=== PATIENT | female | born 1945 | race Caucasian/White ===

== ENCOUNTER 2016-08-07 08:29 | Outpatient (CLI) | payer MEDICARE, OTHER | END 2016-08-07 08:30 | disposition home or self-care (01) | DX: E78.2 Mixed hyperlipidemia (principal); R73.09 Other abnormal glucose ==

== ENCOUNTER 2016-08-15 13:16 | Outpatient (CLI) | payer MEDICARE, OTHER ==
--- NOTE | 2016-08-16 16:40 | Mammography Report ---
DIGITAL SCREENING MAMMOGRAM: 08/15/2016 CLINICAL INDICATION: A 70-year-old with history of benign biopsies, for screening. COMPARISON: 08/2015, 08/2014, 06/2013, 06/2012, 06/2011, 05/2010. TECHNIQUE: Routine CC and MLO projections were obtained of the breasts. FINDINGS: The breasts demonstrate heterogeneously dense fibroglandular parenchyma bilaterally. Stere otactic biopsy markers in the left breast are stable. Punctate, typically benign calcifications are p resent. No suspicious masses, clustered microcalcifications, or regions of architectural distortion a re identified. IMPRESSION: BENIGN FINDINGS. RECOMMENDATION: ROUTINE ANNUAL SCREENING UNLESS OTHERWISE CLINICALLY INDICATED. BIRADS CATEGORY 2-BENIGN FINDINGS. STANDARD QUALIFYING STATEMENTS 1. This examination was reviewed with the aid of Computer-Aided Detection (CAD). 2. A negative or benign imaging report should not delay biopsy if clinically suspicious findings are present. Consider surgical consultation if warranted. More than 5% of cancers are not identified by i maging. 3. Dense breasts may obscure an underlying neoplasm. JOB #: [id number] EXT JOB #:[id number]
== END 2016-08-15 13:17 | disposition home or self-care (01) ==
LOC: DI.S 13:16
PROVIDERS: ATTEND Nurse Practitioner Primary Care
DX: Z12.31 Encounter for screening mammogram for malignant neoplasm of breast (principal)
CPT/HCPCS: 77067

== ENCOUNTER 2016-08-25 10:44 | Emergency (ER) | payer MEDICARE, OTHER ==
[2016-08-25] MEDS ORDERED: DEXAMETHASONE 10 MG/ML VIAL PO STA (12:09)
[2016-08-25] MEDS ORDERED: HYDROcod/ACETAM 5/325 MG TABLET PO STA (12:09)
[2016-08-25] MEDS ORDERED: HYDROcod/ACETAM 5/325 MG TABLET ONE (12:20)
[2016-08-25] MEDS ORDERED: DEXAMETHASONE 10 MG/ML VIAL ONE (12:20)
[2016-08-25] MEDS ORDERED: CHERRY SYRUP 10 ML UDC PO ONE (12:20)
== END 2016-08-25 17:07 | disposition home or self-care (01) ==
DX: S32.020A Wedge compression fracture of second lumbar vertebra, initial encounter for closed fracture (principal); W19.XXXA Unspecified fall, initial encounter; J44.9 Chronic obstructive pulmonary disease, unspecified; J45.909 Unspecified asthma, uncomplicated; M19.90 Unspecified osteoarthritis, unspecified site
CPT/HCPCS: 72100; 72131; 99283; 99284; A9270

== ENCOUNTER 2016-10-16 08:52 | Outpatient (CLI) | payer MEDICARE, OTHER | END 2016-10-16 08:53 | disposition home or self-care (01) | DX: M85.89 Other specified disorders of bone density and structure, multiple sites (principal) ==

== ENCOUNTER 2017-02-28 06:55 | Day surgery (SDC) | payer MEDICARE, OTHER ==
[~2017-02-28 06:55] MED LIST: CYCLOPENTOLATE 1% OPHTH DROPS 2 ML ONE; KETOROLAC 0.45% OPHTH DROPS ONE; PHENYLEPHRINE 2.5% OPHTH 2 ML DROPS ONE; PROPARACAINE 0.5% OPHTH DROPS 15 ML ONE
[2017-02-28] MEDS ORDERED: LACTATED RINGERS 500 ML IV ONE (07:05)
[2017-02-28] MEDS ORDERED: BRIMONIDINE 0.2% OPHTH DROPS 5 ML ONE (07:08)
[2017-02-28] MEDS ORDERED: TIMOLOL 0.5% OPHTH DROPS ONE (07:08)
[2017-02-28] MEDS ORDERED: PHENYLEPHRINE 2.5% OPHTH 2 ML DROPS OPTH ONE (07:12)
[2017-02-28] MEDS ORDERED: KETOROLAC 0.45% OPHTH DROPS OPTH ONE (07:12)
[2017-02-28] MEDS ORDERED: PROPARACAINE 0.5% OPHTH DROPS 15 ML OPTH ONE ×2 (07:12→07:57)
[2017-02-28] MEDS ORDERED: CYCLOPENTOLATE 1% OPHTH DROPS 2 ML OPTH ONE (07:12)
[2017-02-28] MEDS ORDERED: BRIMONIDINE 0.2% OPHTH DROPS 5 ML OPTH ONE (07:56)
[2017-02-28] MEDS ORDERED: BSS/LIDOCAINE/EPINEPHRINE 1 ML SYRINGE IO ONE ×2 (07:57)
[2017-02-28] MEDS ORDERED: TRIAMCIN/MOXIFLOX/VANCO 1 ML VIAL IO ONE ×2 (07:57)
[2017-02-28] MEDS ORDERED: TIMOLOL 0.5% OPHTH DROPS OPTH ONE (07:57)
[2017-02-28] MEDS ORDERED: CHONDR SULF/HYALURONATE SYRINGE IO ONE (07:57)
[2017-02-28] MEDS ORDERED: EPINEPHrine 1 MG/ML AMP IVP ONE (07:57)
[2017-02-28] MEDS ORDERED: MIDAZOLAM 2 MG/2 ML VIAL IVP ONE (08:00)
[2017-02-28 08:42] VITALS: BP 130/62
--- NOTE | 2017-02-28 08:49 | OPERATIVE REPORT ---
DATE OF SURGERY: 02/28/2017 00:00:00 PREOPERATIVE DIAGNOSIS: Visually significant cataract, right eye. This is her first cataract surgery. POSTOPERATIVE DIAGNOSIS: Visually significant cataract, right eye. This is her first cataract surgery . NAME OF PROCEDURE: Phacoemulsification posterior chamber intraocular lens implant, right eye. SURGEON: Erlin Jordan MD. ANESTHESIA: Monitored anesthesia care. COMPLICATIONS: None. OPERATIVE INDICATIONS: This is a 71-year-old woman with progressive vision loss in the right eye due to 1-2+ nuclear sclerotic and vacuolar cataract. Best corrected visual acuity was 20/30 with glare to 20/100 in the right eye. Indications for surgery were overall decrease in vision, difficulty reading small print, difficulty seeing words, close captions, or game scores on TV, difficulty seeing street signs, difficulty driving at night because of headlights from other vehicles, difficulty with glare or bright lights in any situation, and difficulty tracking a golf ball. She was consented at length c oncerning the risks and benefits of cataract surgery, after which she expressed a desire to proceed w ith surgery. OPERATIVE PROCEDURE: The patient was taken into OR #2 and placed under monitored anesthesia care. A s urgical time-out was conducted confirming the correct patient, correct procedure and correct surgical site. She was placed under the LenSx laser and her eye docked to the laser interface. The laser perf ormed capsulotomy, lens softening, phaco wounds, and arcuate keratotomy incisions. She was then moved to the operating microscope, given topical anesthesia, and prepped and draped in the usual sterile f ashion. The eye was entered at the 12 and 9 o'clock positions. Intracameral Shugarcaine was injected into the anterior chamber, followed by Viscoat. Capsulorrhexis flap created by the LenSx laser was re moved from the anterior chamber. The nucleus was hydrodissected and phacoemulsified. The cortex was e vacuated using automated infusion aspiration. Provisc was injected into the capsular bag and a 17.5 d iopter intraocular lens inserted into the bag. Approximately 0.7 mL of a mixture of triamcinolone, mo xifloxacin, and vancomycin was injected subconjunctivally in the superior quadrant for infection and inflammation prophylaxis. I/A was used to evacuate the viscoelastic materials. The eye was inflated t o a physiologic pressure using balanced salt solution and found to be watertight. The patient was nicolás en from the operating room in good condition and given postoperative instructions. JOB #: [id number] EXT JOB #:[id number]
== END 2017-02-28 06:56 | disposition home or self-care (01) ==
LOC: SDS 06:55
PROVIDERS: ATTEND Ophthalmology
PROC: 08RJ3JZ Replacement of Right Lens with Synthetic Substitute, Percutaneous Approach (ICD-10-PCS; principal; 2017-02-28 08:00)
DX: H25.11 Age-related nuclear cataract, right eye (principal); J44.9 Chronic obstructive pulmonary disease, unspecified; Z87.891 Personal history of nicotine dependence; M19.90 Unspecified osteoarthritis, unspecified site
CPT/HCPCS: 66984; A9270; J3490; V2632

== ENCOUNTER 2017-03-15 07:59 | Outpatient (CLI) | payer MEDICARE, OTHER ==
--- NOTE | 2017-03-15 10:25 | MRI Report ---
EXAM: MRI LUMBAR SPINE WITHOUT CONTRAST EXAM DATE: 03/15/2017 09:47 AM. CLINICAL HISTORY: BACK PAIN, LUMBAR, WITH RADICULOPATHY. COMPARISON: MRI LUMBAR SPINE WITHOUT CONTRAST 08/20/2015. CT LUMBAR SPINE 08/25/2016. TECHNIQUE: Multiplanar, multisequence T1-weighted and fluid-sensitive sequences of the lumbar spine f rom T12 to S1 without contrast. Other: None. FINDINGS: Spinal Cord: The conus terminates at L1. No signal abnormality in the visualized spinal cord. Normal cauda equina. No significant change. Alignment: Minimal dextroscoliosis centering at about L2. L4-L5 mild grade 1 degenerative anterolisth esis, unchanged. Bone Marrow: Five [id number] lumbar vertebral bodies are assumed. Acute to subacute superior end plate compression fracture of L2, not present on 08/20/2015, worse than on 08/25/2016, with moderate ed audi and central diskogenic herniation, 30-40% loss of vertebral height anteriorly, without significan t posterior vertebral height loss, with minimal retropulsion. Disk Levels/Facets: Disk dehydration at all levels without significant loss of disk height. T12-L1: Unremarkable. No significant change. L1-L2: Mild broad-based disk bulge/osteophyte complex and mild superior retropulsion of L2 causing mo derate central stenosis but without central neural impingement. No significant foraminal narrowing. F acets are unremarkable. L2-L3: Mild broad-based disk bulge/osteophyte complex extending to the foramina causing mild narrowin g of the central canal and foramina without impingement. Mild facet arthropathy without juxtaarticula r edema or significant effusion. No significant change. L3-L4: Mild broad-based disk bulge/osteophyte complex extending to the foramina causing mild narrowin g of the central canal and foramina without impingement. Mild facet arthropathy without juxtaarticula r edema or significant effusion. No significant change. L4-L5: Mild grade 1 degenerative anterolisthesis. Mild broad-based disk bulge/osteophyte complex exte nding to the foramina causing mild narrowing of the central canal and foramina without impingement. M oderate facet arthropathy without juxtaarticular edema or significant effusion. No significant change . L5-S1: Unremarkable. No significant change. Musculature: Mild to moderate fatty atrophy of posterior paraspinal muscles. No edema. No significant change. Other: The visualized pelvic cavity is unremarkable. IMPRESSION: 1. Acute to subacute superior endplate compression fracture of L2, not present on 08/20/2015, worse th an on 08/25/2016, with moderate edema and central diskogenic herniation, 30-40% loss of vertebral heig ht anteriorly, without significant posterior vertebral height loss, with minimal retropulsion. There is probably acute on chronic compression fracture since 08/25/2016 in the same area. 2. Multilevel disk degenerative changes with mild broad-based disk bulge/osteophyte complex extending to the foramina causing mild narrowing of the central canal and foramina without impingement. No sig nificant change. 3. Minimal dextroscoliosis centering at about L2. L4-L5 mild grade 1 degenerative anterolisthesis, un changed. 4. Multilevel hvzf-vw-yeeylflw facet arthropathy without juxtaarticular edema or significant effusion . No significant change. 5. Mild to moderate fatty atrophy of posterior paraspinal muscles. No edema. Comment: The following findings are so common in adults without low back pain that while we report th eir presence, they must be interpreted with caution and in the context of the clinical situation. (Re subhash Hawkinsk et al, Spine 2001) Prevalence of findings in patients without low back pain: Disk degeneration (any evidence): 92% Disk desiccation/T2 signal loss: 83% Disk height loss: 56% Disk bulge: 64% Disk protrusion: 32% Annular tear/high intensity zone: 38% [facility] Referring Provider Line: [phone] SITE ID: [id number]
--- NOTE | 2017-03-15 10:25 | MRI Report ---
EXAM: MRI SACRUM/SI JOINTS WITHOUT CONTRAST EXAM DATE: 03/15/2017 09:47 AM. CLINICAL HISTORY: BACK PAIN, LUMBAR, WITH RADICULOPATHY. COMPARISON: None. TECHNIQUE: Multiplanar, multisequence T1-weighted and fluid-sensitive sequences of the sacrum/sacroil iac joints without contrast. Other: None. FINDINGS: Bones: There is normal alignment of the sacrum and coccyx. No fractures or subluxations. No marrow ed audi or bone lesions. Sacroiliac Joints: No effusion or sacroiliitis. Symphysis Pubis: Unremarkable. Musculature: No edema or fatty atrophy. Neurologic Structures: The sacral neural foramina are patent, and the sacral nerve roots have normal signal intensity. The visualized sciatic nerves are unremarkable. Pelvic Cavity: The visualized bowel, bladder, and reproductive organs are unremarkable. No lymphadeno rebecca. No free fluid in the pelvis. Other: No bursitis. The subcutaneous tissues are unremarkable. IMPRESSION: 1. No MRI abnormalities in the sacrum/SI joints. 2. Please see separate report of MRI lumbar spine for other abnormality. [facility] MUSCULOSKELETAL RADIOLOGY SECTION Referring Provider Line: [phone] SITE ID: [id number]
== END 2017-03-15 08:00 | disposition home or self-care (01) ==
LOC: DI 07:59
PROVIDERS: ATTEND Nurse Practitioner Primary Care
DX: M48.56XA Collapsed vertebra, not elsewhere classified, lumbar region, initial encounter for fracture (principal); M51.16 Intervertebral disc disorders with radiculopathy, lumbar region; M41.9 Scoliosis, unspecified; M43.16 Spondylolisthesis, lumbar region; M47.26 Other spondylosis with radiculopathy, lumbar region; G12.9 Spinal muscular atrophy, unspecified
CPT/HCPCS: 72148; 72195

== ENCOUNTER 2017-07-17 15:59 | Outpatient (CLI) | payer MEDICARE, OTHER ==
--- NOTE | 2017-07-18 18:18 | XRAY Report ---
DATE OF SERVICE: 07/17/2017 TWO VIEW RIGHT FOURTH FINGER: 07/17/2017 CLINICAL INDICATION: Sprain, pain. AP, lateral views of the right fourth finger demonstrate soft tissue swelling at the proximal interphalangeal joint. There is no evidence of acute fracture or dislocation. No radiopaque foreign body is seen in the soft tissues. IMPRESSION: Soft tissue swelling, but no evidence of acute fracture. TD: 07/18/2017 19:17
== END 2017-07-17 16:00 | disposition home or self-care (01) ==
LOC: DI 15:59
PROVIDERS: ATTEND Nurse Practitioner Primary Care
DX: S63.619A Unspecified sprain of unspecified finger, initial encounter (principal)
CPT/HCPCS: 73140

== ENCOUNTER 2017-08-16 11:37 | Outpatient (CLI) | payer MEDICARE, OTHER ==
--- NOTE | 2017-08-19 12:49 | Mammography Report ---
DIGITAL SCREENING MAMMOGRAM: 08/16/2017 CLINICAL INDICATION: A 71-year-old with history of benign biopsies, for screening. COMPARISON: 08/2016, 08/2015, 08/2014, 06/2013, 06/2012. TECHNIQUE: Routine CC and MLO projections were obtained of the breasts. FINDINGS: The breasts demonstrate scattered fibroglandular densities bilaterally. Stereotactic biopsy markers in the left breast are stable. No suspicious masses, clustered microcalcifications, or regions of architectural distortion are identified. IMPRESSION: BENIGN FINDINGS. RECOMMENDATION: ROUTINE ANNUAL SCREENING UNLESS OTHERWISE CLINICALLY INDICATED. BIRADS CATEGORY 2-BENIGN FINDINGS. STANDARD QUALIFYING STATEMENTS: 1. This examination was reviewed with the aid of Computer-Aided Detection (CAD). 2. A negative or benign imaging report should not delay biopsy if clinically suspicious findings are present. Consider surgical consultation if warranted. More than 5% of cancers are not identified by imaging. 3. Dense breasts may obscure an underlying neoplasm. TD: 08/19/2017 12:48
== END 2017-08-16 11:38 | disposition home or self-care (01) ==
LOC: DI.S 11:37
PROVIDERS: ATTEND Nurse Practitioner Primary Care
DX: Z12.31 Encounter for screening mammogram for malignant neoplasm of breast (principal)
CPT/HCPCS: 77067

== ENCOUNTER 2017-09-16 09:06 | Outpatient (CLI) | payer MEDICARE, OTHER ==
[2017-09-16 17:48] LABS: BASOPHILS % (AUTO) 0.9 %; EOSINOPHILS # (AUTO) 0.1 10^3/uL (0.0-0.7); EOSINOPHILS % (AUTO) 3.8 %; HGB - HEMOGLOBIN 13.8 g/dL (12.0-16.0); LYMPHOCYTES # (AUTO) 1.6 10^3/uL (1.5-3.5); LYMPHOCYTES % (AUTO) 40.8 %; MEAN CORPUSCULAR HEMOGLOBIN 29.6 pg (27.0-31.0); MEAN CORPUSCULAR VOLUME 89.6 fL (81.0-99.0); MEAN PLATELET VOLUME 8.1 fL (7.9-10.8); MONOCYTES # (AUTO) 0.5 10^3/uL (0.0-1.0); MONOCYTES % (AUTO) 12.9 %; NEUTROPHILS # (AUTO) 1.6 10^3/uL (1.5-6.6); NEUTROPHILS % (AUTO) 41.6 %; PLT - PLATELET COUNT 215 10^3/uL (130-450); RED BLOOD COUNT 4.65 10^6/uL (4.20-5.40); WHITE BLOOD COUNT 3.8 x10^3/uL (4.8-10.8)
[2017-09-16 18:09] LABS: ALBUMIN 4.4 g/dL (3.2-5.5); ALBUMIN/GLOBULIN RATIO 1.7 (1.0-2.2); ALKALINE PHOSPHATASE 24 IU/L (42-121); ALT ALANINE AMINOTRANSFERASE 24 IU/L (10-60); AST ASPARTATE AMINOTRANSFERASE 25 IU/L (10-42); BILIRUBIN,TOTAL 0.7 mg/dL (0.2-1.0); BUN - BLOOD UREA NITROGEN 15 mg/dL (6-20); CALCIUM 8.9 mg/dL (8.5-10.3); CARBON DIOXIDE - CO2 26 mmol/L (21-32); CHLORIDE 100 mmol/L (101-111); CHOL/HDL RATIO 3.1 (<4.4); CHOLESTEROL 214 mg/dL; CREATININE 0.6 mg/dL (0.4-1.0); GFR - MDRD 99 (>89); GLUCOSE 105 mg/dL (70-100); HDL CHOLESTEROL 68 mg/dL; LDL CHOLESTEROL,CALCULATED 134 mg/dL; SODIUM 133 mmol/L (135-145); VLDL CHOLESTEROL 12 mg/dL
[2017-09-16 20:19] LABS: HB2 TOTAL 15.1 g/dL; HEMOGLOBIN A1C 0.61 g/dL; HEMOGLOBIN A1C % 5.8 % (4.6-6.2)
== END 2017-09-16 09:07 | disposition home or self-care (01) ==
LOC: LAB 09:06
PROVIDERS: ATTEND Nurse Practitioner Primary Care
DX: E78.5 Hyperlipidemia, unspecified (principal); R73.01 Impaired fasting glucose; M81.0 Age-related osteoporosis without current pathological fracture; K90.0 Celiac disease; E04.1 Nontoxic single thyroid nodule; Z79.899 Other long term (current) drug therapy
CPT/HCPCS: 36415; 80053; 80061; 82306; 83036; 83721; 84443; 85025

== ENCOUNTER 2017-09-29 13:23 | Outpatient (CLI) | payer MEDICARE, OTHER ==
[2017-09-29] MEDS ORDERED: ALBUTEROL NEB 2.5 MG/3 ML INH ONE (14:00)
== END 2017-09-29 13:24 | disposition home or self-care (01) ==
LOC: RT 13:23
PROVIDERS: ATTEND Nurse Practitioner Primary Care
DX: R06.02 Shortness of breath (principal)
CPT/HCPCS: 94060

== ENCOUNTER 2017-10-21 08:33 | Outpatient (CLI) | payer MEDICARE, OTHER ==
--- NOTE | 2017-10-21 13:34 | DEXA Report ---
DEXA SCAN: 10/21/2017 CLINICAL INDICATION: Postmenopausal. TECHNIQUE: Dual energy x-ray absorptiometry (DXA) was performed on a [employer] system. Regions measured are the AP spine, femoral neck, and, if needed, forearm. COMPARISON: None. In accordance with the International Society for Clinical Densitometry (ISCD) guidelines, data from previous exams may be reanalyzed using current recommendations and techniques. This is done to allow a more accurate basis for comparison with the current study. FINDINGS Data for the lumbar spine is as follows: REGION BMD (g/cm/cm) T-SCORE Z-SCORE L3 0.936 -2.2 -0.4 L4 0.936 -2.2 -0.4 L3-L4 0.936 -2.2 -0.4 NOTE: Evaluable vertebrae are used for classification. L1 and L2 were excluded. Data for the hip is as follows: REGION BMD (g/cm/cm) T-SCORE Z-SCORE Neck 0.766 -2.0 -0.1 TOTAL 0.810 -1.6 0.1 NOTE: The femoral neck or total proximal femur, whichever is lowest, is used for classification. DEXA RESULTS SUMMARY: Spine SCAN DATE AGE BMD T-SCORE BMD CHANGE VS BASELINE BMD CHANGE VS PREVIOUS 10[age] 0[age]936 -- 0.020 2.2 10/16/2016 [age] 0[age]916 -- -- -- * Denotes significant change at the 95% confidence level. Denotes dissimilar scan types or analysis methods. DEXA RESULTS SUMMARY: Total hip SCAN DATE AGE BMD T-SCORE BMD CHANGE VS BASELINE BMD CHANGE VS PREVIOUS 10/21/[age] 0.810 -- 0.009 1.1 10/16/2016 [age] 0[age]801 -- -- -- * Denotes significant change at the 95% confidence level. Denotes dissimilar scan types or analysis methods. IMPRESSION 1. WHO CLASSIFICATION BASED ON THE INTERNATIONAL REFERENCE STANDARD IS OSTEOPENIA. FRACTURE RISK IS INCREASED. 2. THERE HAS BEEN NO STATISTICALLY SIGNIFICANT INTERVAL CHANGE FROM 10/16/2016. 3. L1 AND L2 WERE EXCLUDED, DUE TO L2 COMPRESSION FRACTURE. RECOMMENDATION: Patients with diagnosis of osteoporosis or osteopenia should have regular bone mineral density assessment. For those eligible for Medicare, routine testing is allowed once every 2 years. Testing frequency can be increased for patients who have rapidly progressing disease or for those who are receiving medical therapy to restore bone mass. COMMENT World Health Organization (WHO) definitions for osteoporosis and osteopenia: NORMAL BMD: T-score at 1.0 or higher, fracture risk is low. OSTEOPENIA BMD: T-score between 1.0 and -2.5, fracture risk is increased. OSTEOPOROSIS BMD: T-score at 2.5 or lower, fracture risk high. National Osteoporosis Foundation recommends: 1. Obtain adequate dietary calcium (at least 1200 mg per day) and vitamin D (400 -800 international units per day). 2. Participate, as appropriate, in regular weightbearing and muscle- strengthening exercise. 3. Avoid tobacco use and reduce alcohol and caffeine intake. 4. For more detailed information see the website at www.NOF.org. TD: 10/21/2017 09:41 CLAUDINE
== END 2017-10-21 08:34 | disposition home or self-care (01) ==
LOC: DI 08:33
PROVIDERS: ATTEND Nurse Practitioner Primary Care
DX: M85.89 Other specified disorders of bone density and structure, multiple sites (principal); Z79.899 Other long term (current) drug therapy
CPT/HCPCS: 77080

== ENCOUNTER 2017-11-15 07:08 | Outpatient (CLI) | payer MEDICARE, OTHER ==
[2017-11-15 12:09] LABS: ALT ALANINE AMINOTRANSFERASE 35 IU/L (10-60); AST ASPARTATE AMINOTRANSFERASE 28 IU/L (10-42); CHOL/HDL RATIO 2.8 (<4.4); CHOLESTEROL 175 mg/dL; HDL CHOLESTEROL 63 mg/dL; LDL CHOLESTEROL,CALCULATED 97 mg/dL; LDL/HDL RATIO 1.5 (<4.4); VLDL CHOLESTEROL 15 mg/dL
== END 2017-11-15 07:09 | disposition home or self-care (01) ==
LOC: LAB.F 07:08
PROVIDERS: ATTEND Nurse Practitioner Primary Care
DX: Z79.899 Other long term (current) drug therapy (principal); E78.5 Hyperlipidemia, unspecified
CPT/HCPCS: 36415; 80061; 83721; 84450; 84460

== ENCOUNTER 2017-12-04 10:52 | Outpatient (CLI) | payer MEDICARE, OTHER ==
[2017-12-04 11:24] LABS: CALCIUM 9.3 mg/dL (8.5-10.3); CREATININE 0.5 mg/dL (0.4-1.0)
== END 2017-12-04 10:53 | disposition home or self-care (01) ==
LOC: LAB 10:52
PROVIDERS: ATTEND Nurse Practitioner Primary Care
DX: M81.0 Age-related osteoporosis without current pathological fracture (principal)
CPT/HCPCS: 36415; 82310; 82565

== ENCOUNTER 2018-10-08 08:27 | Outpatient (CLI) | payer MEDICARE, OTHER ==
--- NOTE | 2018-10-08 12:24 | Mammography Report ---
Reason: Annual Screening Procedure Date: 10/08/2018 Accession Number: [id number] / [id number] Procedure: JOHNNY - Screening Mammo Dig Bilat CPT Code: FULL RESULT: EXAM: Screening Mammo Dig Bilat DATE: 10/08/2018 8:57 AM CLINICAL HISTORY: Routine screening. No reported personal or family history of breast cancer. Prior history of benign stereotactic breast biopsies on the left. TECHNIQUE: (B) - Bilateral Bilateral CC and MLO views were obtained. COMPARISON: 08/16/2017 through 08/17/2014 PARENCHYMAL PATTERN: (A) - The breasts demonstrate scattered fibroglandular densities bilaterally. FINDINGS: Bilateral breasts: There are no suspicious masses, calcifications, or areas of distortion. Stable appearance of 2 biopsy markers in the central left breast. IMPRESSION: Benign findings. BI-RADS category 2 RECOMMENDATION: (ANNUAL) - Recommend routine annual screening mammography. BI-RADS CATEGORY: (2) - Benign Findings STANDARD QUALIFYING STATEMENTS: 1. This examination was not reviewed with the aid of Computer-Aided Detection (CAD). 2. A negative or benign imaging report should not preclude biopsy if clinically suspicious findings are present. 3. Dense breasts may obscure an underlying neoplasm. 4. This examination was reviewed without the aid of 3D breast imaging (tomosynthesis).
== END 2018-10-08 08:28 | disposition home or self-care (01) ==
LOC: DI 08:27
PROVIDERS: ATTEND Family Medicine
DX: Z12.31 Encounter for screening mammogram for malignant neoplasm of breast (principal)
CPT/HCPCS: 77067

== ENCOUNTER 2018-10-28 10:15 | Outpatient (CLI) | payer MEDICARE, OTHER ==
--- NOTE | 2018-10-29 11:47 | DEXA Report ---
Reason: OSTEOPOROSIS Procedure Date: 10/28/2018 Accession Number: [id number] / [id number] Procedure: DEX - Dexa Spine and/or Hip CPT Code: FULL RESULT: EXAM: Dexa Spine and/or Hip DATE: 10/28/2018 10:45 AM CLINICAL HISTORY: OSTEOPOROSIS TECHNIQUE: Dual energy x-ray absorptiometry (DXA) was performed on a [employer] System. Regions measured are the AP Spine, femoral neck, and if needed forearm. COMPARISON: 10/21/2017. In accordance with the International Society for Clinical Densitometry (ISCD) guidelines, data from previous exams may be reanalyzed using current recommendations and techniques. This is done to allow a more accurate basis for comparison with the current study. FINDINGS: The data for the lumbar spine is as follows: BMD (g/cm/cm) T-SCORE Z-SCORE REGION L1 0.816 -2.6 -0.7 L2 excluded L3 0.954 -2.1 -0.1 L4 0.944 -2.1 -0.2 TOTAL 0.909 -2.2 -0.3 NOTE: All evaluable vertebrae are used for classification The data for the hip is as follows: BMD (g/cm/cm) T-SCORE Z-SCORE REGION Neck 0.762 -2.0 0.0 TOTAL 0.803 -1.6 0.1 NOTE: The femoral neck or total proximal femur, whichever is lowest, is used for classification. DXA RESULTS SUMMARY: Spine SCAN DATE AGE BMD CHANGE VS CHANGE VS PREVIOUS PREVIOUS % 10/28/2018 [age] 0[age]909 0.002 0.2 10/21/2017 71.9 0[age]907 0.056* 6.6* 10/16/2016 [age] 0[age]851 * Denotes significant change at the 95% confidence level. Denotes dissimilar scan types or analysis methods. DXA RESULTS SUMMARY: Hip SCAN DATE AGE BMD CHANGE VS CHANGE VS PREVIOUS PREVIOUS % 10/28/2018 72.9 0.803 -0.007 -0.9 10/21/2017 [age] 0.810 0.004 0.5 10/16/2016 [age] 0.806 * Denotes significant change at the 95% confidence level. Denotes dissimilar scan types or analysis methods. IMPRESSION: THE WHO CLASSIFICATION BASED ON THE INTERNATIONAL REFERENCE STANDARD IS OSTEOPENIA. THE FRACTURE RISK IS INCREASED. RECOMMENDATION: Patients with diagnosis of osteoporosis or osteopenia should have regular bone mineral density assessment. For those eligible for Medicare, routine testing is allowed once every 2 years. Testing frequency can be increased for patients who have rapidly progressing disease or for those who are receiving medical therapy to restore bone mass. COMMENT: World Health Organization (WHO) definitions for osteoporosis and osteopenia: NORMAL BMD: T-score at -1.0 or higher, fracture risk is low OSTEOPENIA BMD: T-score between -1.0 and -2.5, fracture risk is increased. OSTEOPOROSIS BMD: T-score at -2.5 or lower, fracture risk is high. National Osteoporosis Foundation recommends: 1. Obtain adequate dietary calcium (at least 1200 mg per day) and vitamin D (400-800 international units per day). 2. Participate, as appropriate, in regular weightbearing and muscle-strengthening exercise. 3. Avoid tobacco use and reduce alcohol and caffeine intake. 4. For more detailed information see the website at www.NOF.org.
== END 2018-10-28 10:16 | disposition home or self-care (01) ==
LOC: DI 10:15
PROVIDERS: ATTEND Family Medicine
DX: M85.89 Other specified disorders of bone density and structure, multiple sites (principal)
CPT/HCPCS: 77080

== ENCOUNTER 2018-12-18 12:35 | Outpatient (CLI) | payer MEDICARE, OTHER ==
[2018-12-18 17:34] LABS: MAGNESIUM 2.2 mg/dL (1.7-2.8); PHOSPHORUS 3.4 mg/dL (2.5-4.6)
== END 2018-12-18 12:36 | disposition home or self-care (01) ==
LOC: LAB.F 12:35
PROVIDERS: ATTEND Internal Medicine Endocrinology, Diabetes & Metabolism
DX: R74.8 Abnormal levels of other serum enzymes (principal)
CPT/HCPCS: 36415; 83735; 84100; 84207; 84630

== ENCOUNTER 2019-03-19 06:41 | Day surgery (SDC) | payer MEDICARE, OTHER ==
[2019-03-19] MEDS ORDERED: fentaNYL 100 MCG/2 ML VIAL IVP ONE (06:42)
[2019-03-19] MEDS ORDERED: MIDAZOLAM 2 MG/2 ML VIAL IVP ONE (06:42)
[2019-03-19] MEDS ORDERED: TRIAMCIN/MOXIFLOX OPHTHALMIC 0.6 ML VIAL IO ONE ×2 (07:06→08:12)
[2019-03-19] MEDS ORDERED: BRIMONIDINE 0.2% OPHTH DROPS 5 ML ONE (07:06)
[2019-03-19] MEDS ORDERED: VANCOMYCIN OPHTHALMI 8MG/0.8ML 8 MG/0.8 ML SYRINGE IO ONE ×2 (07:06→08:14)
[2019-03-19] MEDS ORDERED: BSS/LIDOCAINE/EPINEPHRINE 1 ML SYRINGE ONE (07:06)
[2019-03-19] MEDS ORDERED: TIMOLOL 0.5% OPHTH DROPS ONE (07:06)
[2019-03-19] MEDS ORDERED: KETOROLAC 0.45% OPHTH DROPS ONE (07:14)
[2019-03-19] MEDS ORDERED: PHENYLEPHRINE 2.5% OPHTH 2 ML DROPS ONE (07:14)
[2019-03-19] MEDS ORDERED: LACTATED RINGERS 500 ML IV ONE (07:14)
[2019-03-19] MEDS ORDERED: PROPARACAINE 0.5% OPHTH DROPS 15 ML ONE (07:14)
[2019-03-19] MEDS ORDERED: CYCLOPENTOLATE 1% OPHTH DROPS 2 ML ONE (07:14)
[2019-03-19] MEDS ORDERED: CYCLOPENTOLATE 1% OPHTH DROPS 2 ML LEFTEYE ONE (07:15)
[2019-03-19] MEDS ORDERED: PHENYLEPHRINE 2.5% OPHTH 2 ML DROPS LEFTEYE ONE (07:15)
[2019-03-19] MEDS ORDERED: KETOROLAC 0.45% OPHTH DROPS LEFTEYE ONE (07:15)
[2019-03-19] MEDS ORDERED: PROPARACAINE 0.5% OPHTH DROPS 15 ML LEFTEYE ONE (07:15)
--- NOTE | 2019-03-19 08:03 | ANESTHESIA ---
Pre-Anesthesia VS, & Labs - Diagnosis Left eye senile combined cataract - Procedure Left eye laser assisted cataract extraction with IOL implant Vital Signs: Temp Pulse Resp BP Pulse Ox 37.2 C 81 18 124/57 L 98 03/19/19 07:14 03/19/19 07:14 03/19/19 07:14 03/19/19 07:14 03/19/19 07:14 Height 5 ft 7 in Weight (kg) 59.2 kg - NPO Last Fluid Intake: water at 0445 - Is Patient ?: Not Applicable Home Medications and Allergies Home Medications: Ambulatory Orders D-Mannose [Mannxtra] 300 gm PO BID 03/18/19 Melatonin 1 mg PO DAILY 03/18/19 Zinc Gluconate [Zinc] 50 mg PO DAILY 03/18/19 Acyclovir 400 mg PO DAILY 04/25/16 Gabapentin 300 mg PO TID 04/25/16 Ascorbic Acid [Vitamin C] 500 mg PO DAILY 04/26/16 Calcium Citrate/Vitamin D3 [Calcium Citrate +Vit D3 Tablet] 2 each PO BID 04/26/16 Cholecalciferol [Vitamin D3] 5,000 unit PO DAILY 04/26/16 Clobetasol Propionate [Temovate] 15 gm TP ONCE PRN 04/26/16 Cyanocobalamin (Vitamin B-12) [Vitamin B12] 2,500 mcg SL DAILY 04/26/16 Witt-3/Dha/Epa/Fish Oil [Fish Oil 1,000 mg Softgel] 1 each PO BID 04/26/16 Tacrolimus [Protopic] 100 gm TP ONCE PRN 04/26/16 Atorvastatin [Lipitor] 10 mg ORAL DAILY 12/06/17 Lisinopril 40 mg ORAL DAILY 12/06/17 Cetirizine [ZyrTEC] 10 mg ORAL DAILY 02/19/19 amLODIPine [Norvasc] 5 mg ORAL DAILY 02/19/19 D-Mannose [Mannxtra] 300 gm PO BID 03/18/19 Melatonin 1 mg PO DAILY 03/18/19 Zinc Gluconate [Zinc] 50 mg PO DAILY 03/18/19 Allergies/Adverse Reactions: Allergies Allergy/AdvReac Type Severity Reaction Status Date / Time gluten Allergy Unknown Verified 02/19/19 10:32 Anes History & Medical History - Anesthetic History Anesthesia Complications: reports: No previous complications - Medical History Cardiovascular: reports: Hypertension Pulmonary: reports: Asthma, COPD Gastrointestinal: reports: Other (celiac) Urinary: reports: None Neuro: reports: None Musculoskeletal: reports: Osteoarthritis, Osteoporosis, Osteopenia, Other Endocrine/Autoimmune: reports: None Blood Disorders: reports: None Skin: reports: Other Smoking Status: Never smoker Psychosocial: reports: No issues indicated - Surgical History General: Colonoscopy Eyes Ears Nose Throat (EENT): Tonsil/Adenoidectomy Orthopedic: Other Exam General: Alert, Oriented x3, Cooperative Dental: WNL Mouth Openin Fingerbreadth Neck Mobility: Normal Mallampati classification: II Thyromental Distance: greater than 6 cm Mental/Cognitive Status: Alert/Oriented X3, Normal for patient Plan Anesthesia Type: MAC Consent for Procedure(s) Verified and Reviewed: Yes Code Status: Attempt Resuscitation ASA classification: 2-Mild systemic disease Is this case an emergency?: No
[2019-03-19] MEDS ORDERED: BRIMONIDINE 0.2% OPHTH DROPS 5 ML OPTH ONE (08:12)
[2019-03-19] MEDS ORDERED: TIMOLOL 0.5% OPHTH DROPS OPTH ONE (08:12)
[2019-03-19] MEDS ORDERED: CHONDR SULF/HYALURONATE SYRINGE IO ONE (08:12)
[2019-03-19] MEDS ORDERED: EPINEPHrine 1 MG/ML AMP IVP ONE (08:12)
[2019-03-19] MEDS ORDERED: BSS/LIDOCAINE/EPINEPHRINE 1 ML SYRINGE IO ONE (08:12)
--- NOTE | 2019-03-19 09:06 | OPERATIVE REPORT ---
DATE OF SERVICE: 03/19/2019 Physician: Erlin Jordan MD PREOPERATIVE DIAGNOSIS: Visually significant cataract, left eye. Cataract surgery was performed on the right eye on 02/28/2017. POSTOPERATIVE DIAGNOSIS: Visually significant cataract, left eye. Cataract surgery was performed on the right eye on 02/28/2017. PROCEDURE: Phacoemulsification with posterior chamber intraocular lens implant, left eye with laser assist. SURGEON: Erlin Jordan MD ANESTHESIA: Monitored anesthesia care. COMPLICATIONS: None. OPERATIVE INDICATIONS: This is a 71-year-old woman with progression of vision loss in the left eye due to 1-2+ nuclear sclerotic and vacuolar cataract. Best corrected visual acuity was 20/30 with glare to 20/100 in the left eye. Indications for surgery are difficulty seeing words, closed caption or game scores on TV, difficulty seeing street signs, difficulty driving in low light or at night, difficulty driving at night because of headlights from other vehicles, difficulty with glare or bright lights in any situation, and difficulty tracking a golf ball. She was consented at length concerning risks and benefits of cataract surgery, after which she expressed a desire to proceed with surgery. OPERATIVE PROCEDURE: Patient was taken to OR #3 and placed under monitored anesthesia care. A surgical timeout was conducted confirming correct patient, correct procedure, and correct surgical site. She was placed on the LenSx laser and her eye was docked to the laser interface. The laser performed the capsulotomy, lens softening, phaco wounds and arcuate keratotomy incisions. She was then moved to the operating microscope, given topical anesthesia, and prepped and draped in the usual sterile fashion. The eye was entered at the 6 and 3 o'clock positions. Intracameral Shugarcaine was injected into the anterior chamber, followed by Viscoat. capsulorrhexis flap created by the LenSx laser was removed from the anterior chamber. The nucleus was hydrodissected and phacoemulsified. The cortex was evacuated using automated infusion and aspiration. Provisc was injected in the capsular bag, and an 18.0 diopter intraocular lens was inserted into the bag. Approximately 0.8 mL mixture of triamcinolone, moxifloxacin and vancomycin was injected subconjunctivally in the superior quadrant for infection and inflammation prophylaxis. I and A, was used to evacuate the viscoelastic materials. The eye was inflated using balanced salt solution but the phaco wound was leaking and could not maintain watertight integrity. Therefore, a 10-0 nylon suture was placed across the wound, tied and buried, and then the eye would inflate to physiologic pressure. Patient was taken from the operating room in good condition and given postoperative instructions. TD: 03/19/2019 08:59 CLAUDINE
[2019-03-19 09:14] VITALS: BP 124/70
== END 2019-03-19 06:42 | disposition home or self-care (01) ==
LOC: SDS 06:41
PROVIDERS: ATTEND Ophthalmology
PROC: 08RK3JZ Replacement of Left Lens with Synthetic Substitute, Percutaneous Approach (ICD-10-PCS; principal; 2019-03-19 08:00)
DX: H25.812 Combined forms of age-related cataract, left eye (principal); I10 Essential (primary) hypertension; J44.9 Chronic obstructive pulmonary disease, unspecified
CPT/HCPCS: 66984; A9270; J3490; V2632

== ENCOUNTER 2019-08-12 08:52 | Outpatient (CLI) | payer MEDICARE, OTHER ==
--- NOTE | 2019-08-12 10:54 | XRAY Report ---
Reason: LT KNEE PAIN Procedure Date: 08/12/2019 Accession Number: [id number] / [id number] Procedure: XRS - Knee 3 View LT CPT Code: Final Report FULL RESULT: EXAM: LEFT KNEE RADIOGRAPHY EXAM DATE: 08/12/2019 09:07 AM. CLINICAL HISTORY: LT KNEE PAIN. COMPARISON: None. TECHNIQUE: 3 views. FINDINGS: Narrowing of the patellofemoral joint and medial compartment is seen. There is no joint effusion or soft tissue swelling. The bones are osteopenic. No fracture or bone lesion is seen. IMPRESSION: Osteopenia. Mild degenerative changes without evidence of fracture. [facility]
== END 2019-08-12 08:53 | disposition home or self-care (01) ==
LOC: DI.S 08:52
PROVIDERS: ATTEND Registered Nurse
DX: M85.862 Other specified disorders of bone density and structure, left lower leg (principal); M17.12 Unilateral primary osteoarthritis, left knee

== ENCOUNTER 2019-09-30 08:55 | Outpatient (CLI) | payer MEDICARE, OTHER ==
--- NOTE | 2019-09-30 10:11 | Mammography Report ---
Reason: MASTODYNIA, RT BREAST AND NIPPLE Procedure Date: 09/30/2019 Accession Number: [id number] / [id number] Procedure: JOHNNY - Diagnostic Dig Bilat CPT Code: Final Report FULL RESULT: EXAM: Diagnostic Dig Bilat DATE: 09/30/2019 9:46 AM CLINICAL HISTORY: History of right nipple itching which has ceased. History of right lateral breast pain which has also ceased. TECHNIQUE: (B) - Bilateral CC and MLO views were obtained. Patient is kyphotic limiting the ability to perform breast tomosynthesis. COMPARISON: 10/08/2018, 08/16/2017, 08/15/2016, 08/17/2014, 07/03/2013, 06/19/2011 and 06/05/2010 PARENCHYMAL PATTERN: (A) - The breasts demonstrate scattered fibroglandular densities bilaterally. FINDINGS: No significant interval change. There are no suspicious masses, calcifications, or areas of distortion. IMPRESSION: Negative examination. BI-RADS category 1. RECOMMENDATION: (ANNUAL) - Recommend routine annual screening mammography. Recommend clinical follow-up of right lateral breast pain and nipple itching. BI-RADS CATEGORY: (1) - Negative. STANDARD QUALIFYING STATEMENTS: 1. This examination was not reviewed with the aid of Computer-Aided Detection (CAD). 2. A negative or benign imaging report should not preclude biopsy if clinically suspicious findings are present. 3. Dense breasts may obscure an underlying neoplasm. 4. This examination was reviewed without the aid of 3D breast imaging (tomosynthesis).
== END 2019-09-30 08:56 | disposition home or self-care (01) ==
LOC: DI 08:55
PROVIDERS: ATTEND Nurse Practitioner Family
DX: N64.4 Mastodynia (principal)
CPT/HCPCS: 77066

== ENCOUNTER 2020-03-01 10:02 | Outpatient (CLI) | payer MEDICARE, OTHER ==
--- NOTE | 2020-03-01 16:40 | DEXA Report ---
PROCEDURE: Dexa Spine and/or Hip INDICATIONS: OSTEOPOROSIS TECHNIQUE: Dual energy x-ray absorptiometry (DXA) was performed on a [employer] System. Regions measur ed are the AP Spine, femoral neck, and if needed forearm. COMPARISON: None. FINDINGS: Lumbar Spine: Bone Mineral Density 0.998 g/cm/cm,T score -1.5, compared to -2.2 on prior exam. Left Hip: Bone Mineral Density 0.794 g/cm/cm,T score -1.7, compared to -1.6. Left Femoral Neck: Bone Mineral Density 0.761 g/cm/cm, T score -2.0, compared to -2.0 on prior exam. (T score greater or equal to -1.0: NORMAL) (T score from -1.1 to -2.4: OSTEOPENIA) (T score less than or equal to -2.5 to: OSTEOPOROSIS) Impression: Improved osteopenia within the lumbar spine with stable mild to moderate and moderate to severe osteopenia within the left hip and femoral neck respectively. Patients with diagnosis of osteoporosis or osteopenia should have regular bone mineral density assess ment. For those eligible for Medicare, routine testing is allowed once every 2 years. Testing frequ ency can be increased for patients who have rapidly progressing disease or for those who are receivin g medical therapy to restore bone mass. Reviewed by: Yakelin Dubois MD on 03/01/2020 4:39 PM PDT Approved by: Yakelin Dubois MD on 03/01/2020 4:39 PM PDT Station ID: [id number]
== END 2020-03-01 10:03 | disposition home or self-care (01) ==
LOC: DI 10:02
PROVIDERS: ATTEND Nurse Practitioner Family
DX: M85.89 Other specified disorders of bone density and structure, multiple sites (principal)
CPT/HCPCS: 77080

== ENCOUNTER 2020-05-10 08:22 | Outpatient (CLI) | payer MEDICARE, OTHER ==
--- NOTE | 2020-05-10 14:37 | XRAY Report ---
PROCEDURE: Hips 2V BILAT INDICATIONS: SPINAL STENOSIS LUMBAR REGION, BILATERAL HIP PAIN TECHNIQUE: 2 views of the right hip and left hip were acquired. COMPARISON: 09/23/2006 FINDINGS: Bones: No fractures or dislocations. No suspicious bony lesions. The visualized pelvic ring appear s intact. Mild osseous hypertrophy noted in the hips bilaterally compatible with osteoarthritis. Soft tissues: No suspicious soft tissue calcifications or masses. IMPRESSION: Mild bilateral hip osteoarthritis. Reviewed by: Debra Ramirez MD, PhD on 05/10/2020 2:35 PM PST Approved by: Debra Ramirez MD, PhD on 05/10/2020 2:35 PM PST Station ID: [id number]
--- NOTE | 2020-05-10 14:39 | XRAY Report ---
PROCEDURE: Lumbar Spine Complete INDICATIONS: SPINAL STENOSIS LUMBAR REGION, BILATERAL HIP PAIN TECHNIQUE: 5 views of the lumbar spine were acquired. COMPARISON: None. FINDINGS: Bones: 5 [id number] vertebrae are present. There is mild L4-L5 anterolisthesis secondary to fa cet hypertrophy loss of height noted in the L2 vertebral body compatible compression fractures of ind eterminate age. L2 compression fracture results in approximately 20% loss of normal vertebral and hei ght. No kyphosis or retropulsed fragments associated with the L2 compression fracture. No suspicious bony lesions. Mild L1-L2, L2-L3, L3-L4, L4-L5 and L5-S1 degenerative disc disease. Moderate L4-L5 and L5-S1 facet arthropathy. No pars interarticularis defects Soft tissues: Overlying bowel gas pattern is normal. No suspicious soft tissue calcifications. IMPRESSION: 1. Multilevel degenerative disease. 2. Multilevel facet arthropathy. 3. L2 compression fracture of indeterminate age. If there is continued clinical concern for patholo gy, then MRI should be considered for further evaluation. Reviewed by: Debra Ramirez MD, PhD on 05/10/2020 2:38 PM PST Approved by: Debra Ramirez MD, PhD on 05/10/2020 2:38 PM PST Station ID: [id number]
== END 2020-05-10 08:23 | disposition home or self-care (01) ==
LOC: DI.S 08:22
PROVIDERS: ATTEND Nurse Practitioner Family
DX: M48.061 Spinal stenosis, lumbar region without neurogenic claudication (principal); M51.36 Other intervertebral disc degeneration, lumbar region; M48.56XA Collapsed vertebra, not elsewhere classified, lumbar region, initial encounter for fracture; M16.0 Bilateral primary osteoarthritis of hip
CPT/HCPCS: 72110; 73521

== ENCOUNTER 2020-09-19 07:22 | Outpatient (CLI) | payer MEDICARE, OTHER ==
[2020-09-19 14:59] LABS: BASOPHILS % (AUTO) 0.5 %; EOSINOPHILS # (AUTO) 0.2 10^3/uL (0.0-0.7); EOSINOPHILS % (AUTO) 4.3 %; HCT - HEMATOCRIT 40.8 % (37.0-47.0); HGB - HEMOGLOBIN 13.9 g/dL (12.0-16.0); LYMPHOCYTES # (AUTO) 1.8 10^3/uL (1.5-3.5); LYMPHOCYTES % (AUTO) 49.7 %; MEAN CORPUSCULAR HEMOGLOBIN 30.9 pg (27.0-31.0); MEAN CORPUSCULAR HGB CONC 34.1 g/dL (32.0-36.0); MEAN CORPUSCULAR VOLUME 90.7 fL (81.0-99.0); MEAN PLATELET VOLUME 10.2 fL (7.9-10.8); MONOCYTES # (AUTO) 0.5 10^3/uL (0.0-1.0); MONOCYTES % (AUTO) 13.9 %; NEUTROPHILS # (AUTO) 1.2 10^3/uL (1.5-6.6); NEUTROPHILS % (AUTO) 31.6 %; PLT - PLATELET COUNT 246 10^3/uL (130-450); RED CELL DISTRIBUTION WIDTH 13.3 % (12.0-15.0); WHITE BLOOD COUNT 3.7 x10^3/uL (4.8-10.8)
[2020-09-19 15:20] LABS: ALBUMIN 4.6 g/dL (3.2-5.5); ALBUMIN/GLOBULIN RATIO 1.8 (1.0-2.2); BILIRUBIN,TOTAL 0.9 mg/dL (0.2-1.0); CALCIUM 9.3 mg/dL (8.5-10.3); CREATININE 0.6 mg/dL (0.4-1.0); POTASSIUM 3.9 mmol/L (3.5-5.0); TOTAL PROTEIN 7.2 g/dL (6.7-8.2)
[2020-09-19 15:31] LABS: THYROID STIMULATING HORMONE 2.12 uIU/mL (0.34-5.60)
[2020-09-19 15:35] LABS: FREE T4 (FREE THYROXINE) 0.92 ng/dL (0.58-1.64)
== END 2020-09-19 07:23 | disposition home or self-care (01) ==
LOC: LAB.S 07:22
PROVIDERS: ATTEND Nurse Practitioner Family
DX: I10 Essential (primary) hypertension (principal); M81.0 Age-related osteoporosis without current pathological fracture
CPT/HCPCS: 36415; 80053; 82306; 84439; 84443; 85025

== ENCOUNTER 2020-10-24 08:23 | Outpatient (CLI) | payer MEDICARE, OTHER ==
--- NOTE | 2020-10-25 10:00 | Mammography Report ---
BILATERAL DIGITAL SCREENING MAMMOGRAM 3D/2D: 10/24/2020 CLINICAL: Routine screening. Comparison is made to exams dated: 09/30/2019 mammogram, 10/08/2018 mammogram, and 08/16/2017 mammogram - [facility]. There are scattered fibroglandular elements in both breasts. There are biopsy clips in the left breast. No significant masses, calcifications, or other findings are seen in either breast. There has been no significant interval change. IMPRESSION: NEGATIVE There is no mammographic evidence of malignancy. A 1 year screening mammogram is recommended. This exam was interpreted at Station ID: [id number]. NOTE: For mammograms, a report in lay terms will be sent to the patient. Approximately 15% of breast malignancies will not be visualized mammographically. In the management of a palpable breast mass, a negative mammogram must not discourage biopsy of a clinically suspicious lesion. Electronically Signed By: Zaki Dailey M.D. ar/penrad:10/24/2020 09:32:28 ACR BI-RADS Category 1: Negative 3341F PARENCHYMAL PATTERN: (A) - The breast(s) demonstrate(s) scattered fibroglandular densities. BI-RADS CATEGORY: (1) - 1 RECOMMENDATION: (ANNUAL) - Recommend routine annual screening mammography. [id number] 1 year screening LATERALITY: (B)
== END 2020-10-24 08:24 | disposition home or self-care (01) ==
LOC: DI.S 08:23
PROVIDERS: ATTEND Nurse Practitioner Family
DX: Z12.31 Encounter for screening mammogram for malignant neoplasm of breast (principal)

== ENCOUNTER 2021-03-28 08:12 | Outpatient (CLI) | payer MEDICARE, OTHER ==
--- NOTE | 2021-03-28 09:33 | DEXA Report ---
PROCEDURE: Dexa Spine and/or Hip INDICATIONS: OSTEOPOROSIS TECHNIQUE: Dual energy x-ray absorptiometry (DXA) was performed on a [employer] System. Regions measur ed are the AP Spine, femoral neck, and if needed forearm. COMPARISON: None. FINDINGS: Lumbar Spine: Bone Mineral Density 1.029 g/cm/cm,T score -1.3. There is interval 5.8% decrease in total lumbar s pine bone mineral density. Left Hip: Bone Mineral Density 0.780 g/cm/cm,T score -1.8, there is interval 1.8% decrease in total left hip b one mineral density. Left Femoral Neck: Bone Mineral Density 0.777 g/cm/cm, T score -1.9. (T score greater or equal to -1.0: NORMAL) (T score from -1.1 to -2.4: OSTEOPENIA) (T score less than or equal to -2.5 to: OSTEOPOROSIS) Impression: Osteopenia. Patients with diagnosis of osteoporosis or osteopenia should have regular bone mineral density assess ment. For those eligible for Medicare, routine testing is allowed once every 2 years. Testing frequ ency can be increased for patients who have rapidly progressing disease or for those who are receivin g medical therapy to restore bone mass. Reviewed by: Abdoul Jones MD on 03/28/2021 9:31 AM PDT Approved by: Abdoul Jones MD on 03/28/2021 9:31 AM PDT Station ID: [id number]
== END 2021-03-28 08:13 | disposition home or self-care (01) ==
LOC: DI 08:12
PROVIDERS: ATTEND Internal Medicine Endocrinology, Diabetes & Metabolism
DX: M85.89 Other specified disorders of bone density and structure, multiple sites (principal)

== ENCOUNTER 2021-12-07 07:51 | Outpatient (CLI) | payer MEDICARE, OTHER ==
[2021-12-07 14:25] LABS: BASOPHILS % (AUTO) 0.6 %; EOSINOPHILS # (AUTO) 0.1 10^3/uL (0.0-0.7); EOSINOPHILS % (AUTO) 3.3 %; HCT - HEMATOCRIT 40.9 % (37.0-47.0); HGB - HEMOGLOBIN 13.5 g/dL (12.0-16.0); LYMPHOCYTES # (AUTO) 1.5 10^3/uL (1.5-3.5); LYMPHOCYTES % (AUTO) 45.2 %; MEAN CORPUSCULAR HEMOGLOBIN 29.7 pg (27.0-31.0); MEAN CORPUSCULAR VOLUME 90.1 fL (81.0-99.0); MEAN PLATELET VOLUME 9.9 fL (7.9-10.8); MONOCYTES # (AUTO) 0.6 10^3/uL (0.0-1.0); MONOCYTES % (AUTO) 16.8 %; NEUTROPHILS # (AUTO) 1.1 10^3/uL (1.5-6.6); NEUTROPHILS % (AUTO) 33.8 %; PLT - PLATELET COUNT 238 10^3/uL (130-450); RED BLOOD COUNT 4.54 10^6/uL (4.20-5.40); RED CELL DISTRIBUTION WIDTH 13.5 % (12.0-15.0); WHITE BLOOD COUNT 3.3 x10^3/uL (4.8-10.8)
[2021-12-07 15:24] LABS: THYROID STIMULATING HORMONE 1.42 uIU/mL (0.34-5.60)
[2021-12-07 15:28] LABS: CHOL/HDL RATIO 2.4 (<4.4); CHOLESTEROL 166 mg/dL; HDL CHOLESTEROL 69 mg/dL; LDL CHOLESTEROL,CALCULATED 88 mg/dL; LDL/HDL RATIO 1.3 (<4.4); TRIGLYCERIDES 45 mg/dL; VLDL CHOLESTEROL 9 mg/dL
== END 2021-12-07 07:52 | disposition home or self-care (01) ==
LOC: LAB.S 07:51
PROVIDERS: ATTEND Nurse Practitioner Family
DX: I10 Essential (primary) hypertension (principal); E78.5 Hyperlipidemia, unspecified; M81.0 Age-related osteoporosis without current pathological fracture
CPT/HCPCS: 36415; 80061; 82306; 83721; 84443; 85025

== ENCOUNTER 2022-01-23 07:43 | Outpatient (CLI) | payer MEDICARE, OTHER ==
--- NOTE | 2022-01-24 16:21 | Mammography Report ---
BILATERAL DIGITAL SCREENING MAMMOGRAM 3D/2D WITH EXAGGERATED CC: 01/23/2022 CLINICAL: Routine screening. Comparison is made to exams dated: 10/24/2020 mammogram, 09/30/2019 mammogram, 10/08/2018 mammogram, and 08/16/2017 mammogram - [facility]. There are scattered fibroglandular elements in b oth breasts. There are biopsy clips in the left breast. No significant masses, calcifications, or other findings are seen in either breast. There has been no significant interval change. IMPRESSION: NEGATIVE There is no mammographic evidence of malignancy. A 1 year screening mammogram is recommended. Based on the Tyrer Cuzick model (a risk assessment model) the patients lifetime risk is 1.9% and her 10 year risk is 0.0%. According to the ACR, ACS, and NCCN guidelines, an annual breast MRI exam michelle g with mammogram is recommended if the patients lifetime risk is 20% or greater. This exam was interpreted at Station ID: [id number]. NOTE: For mammograms, a report in lay terms will be sent to the patient. Approximately 15% of breast malignancies will not be visualized mammographically. In the management of a palpable breast mass, a negative mammogram must not discourage biopsy of a clinically suspicious lesion. Electronically Signed By: Diana calix/clementine:01/23/2022 10:30:28 ACR BI-RADS Category 1: Negative 3341F PARENCHYMAL PATTERN: (A) - The breast(s) demonstrate(s) scattered fibroglandular densities. BI-RADS CATEGORY: (1) - 1 RECOMMENDATION: (ANNUAL) - Recommend routine annual screening mammography. [id number] 1 year screening LATERALITY: (B)
== END 2022-01-23 07:44 | disposition home or self-care (01) ==
LOC: DI.S 07:43
PROVIDERS: ATTEND Nurse Practitioner Family
DX: Z12.31 Encounter for screening mammogram for malignant neoplasm of breast (principal)

== ENCOUNTER 2023-04-08 15:02 | Outpatient (CLI) | payer MEDICARE, OTHER ==
--- NOTE | 2023-04-09 12:27 | DEXA Report ---
PROCEDURE: Dexa Spine and/or Hip INDICATIONS: OSTEOPOROSIS TECHNIQUE: Dual energy x-ray absorptiometry (DEXA) was performed in the regions detailed below. COMPARISON: None. FINDINGS: Lumbar Spine: Bone Mineral Density 1.089 g/cm/cm,T score -0.9. Previously -1.0 Left Femoral Neck: Bone Mineral Density 0.756 g/cm/cm, T score -2.0. Previously -2.0 Left Hip: Bone Mineral Density 0.805 g/cm/cm,T score -1.6. Previously -1.6 (T score greater or equal to -1.0: NORMAL) (T score from -1.1 to -2.4: OSTEOPENIA) (T score less than or equal to -2.5 to: OSTEOPOROSIS) IMPRESSION: Stable osteopenia Patients with diagnosis of osteoporosis or osteopenia should have regular bone mineral density assess ment. For those eligible for Medicare, routine testing is allowed once every 2 years. Testing frequ ency can be increased for patients who have rapidly progressing disease or for those who are receivin g medical therapy to restore bone mass. Reviewed by: Rad Palma MD on 04/09/2023 11:26 AM KRISTEN Approved by: Rad Palma MD on 04/09/2023 11:26 AM KRISTEN Station ID: [id number]
== END 2023-04-08 15:03 | disposition home or self-care (01) ==
LOC: DI 15:02
PROVIDERS: ATTEND Internal Medicine
DX: M85.80 Other specified disorders of bone density and structure, unspecified site (principal)

== ENCOUNTER 2023-04-17 07:10 | Outpatient (CLI) | payer MEDICARE, OTHER ==
[2023-04-17 14:17] LABS: ESTIMATED AVERAGE GLUCOSE 120 mg/dL (70-100); HEMOGLOBIN A1c% 5.8 % (4.27-6.07)
[2023-04-17 15:01] LABS: BASOPHILS % (AUTO) 0.9 %; EOSINOPHILS # (AUTO) 0.1 10^3/uL (0.0-0.7); EOSINOPHILS % (AUTO) 3.2 %; HCT - HEMATOCRIT 40.8 % (37.0-47.0); HGB - HEMOGLOBIN 13.2 g/dL (12.0-16.0); LYMPHOCYTES # (AUTO) 1.6 10^3/uL (1.5-3.5); LYMPHOCYTES % (AUTO) 35.4 %; MEAN CORPUSCULAR HEMOGLOBIN 29.5 pg (27.0-31.0); MEAN CORPUSCULAR HGB CONC 32.4 g/dL (32.0-36.0); MEAN CORPUSCULAR VOLUME 91.1 fL (81.0-99.0); MEAN PLATELET VOLUME 9.7 fL (7.9-10.8); MONOCYTES # (AUTO) 0.7 10^3/uL (0.0-1.0); MONOCYTES % (AUTO) 14.9 %; NEUTROPHILS % (AUTO) 45.4 %; PLT - PLATELET COUNT 249 10^3/uL (130-450); RED BLOOD COUNT 4.48 10^6/uL (4.20-5.40); RED CELL DISTRIBUTION WIDTH 13.7 % (12.0-15.0); WHITE BLOOD COUNT 4.4 x10^3/uL (4.8-10.8)
[2023-04-17 16:02] LABS: THYROID STIMULATING HORMONE 1.67 uIU/mL (0.34-5.60)
[2023-04-17 16:23] LABS: ALBUMIN 4.6 g/dL (3.2-5.5); ALBUMIN/GLOBULIN RATIO 2.1 (1.0-2.2); ALKALINE PHOSPHATASE 40 IU/L (42-121); ALT ALANINE AMINOTRANSFERASE 21 IU/L (10-60); AST ASPARTATE AMINOTRANSFERASE 24 IU/L (10-42); BILIRUBIN,TOTAL 0.5 mg/dL (0.2-1.0); BUN - BLOOD UREA NITROGEN 13 mg/dL (6-20); CALCIUM 9.6 mg/dL (8.5-10.3); CARBON DIOXIDE - CO2 29 mmol/L (21-32); CHLORIDE 100 mmol/L (101-111); CHOLESTEROL 154 mg/dL; CREATININE 0.6 mg/dL (0.6-1.3); GFR - MDRD 97 (>89); GLUCOSE 107 mg/dL (74-104); POTASSIUM 4.3 mmol/L (3.5-4.5); SODIUM 134 mmol/L (135-145); TOTAL PROTEIN 6.8 g/dL (6.4-8.9); TRIGLYCERIDES 39 mg/dL (48-352)
[2023-04-17 22:23] LABS: CHOL/HDL RATIO 2.1 (<4.4); HDL CHOLESTEROL 72 mg/dL
== END 2023-04-17 07:11 | disposition home or self-care (01) ==
LOC: LAB.S 07:10
PROVIDERS: ATTEND Internal Medicine
DX: I10 Essential (primary) hypertension (principal); M81.0 Age-related osteoporosis without current pathological fracture; E78.5 Hyperlipidemia, unspecified; E55.9 Vitamin D deficiency, unspecified; R73.01 Impaired fasting glucose; E04.1 Nontoxic single thyroid nodule
CPT/HCPCS: 36415; 80053; 80061; 82306; 83036; 83721; 84443; 85025

== ENCOUNTER 2023-06-03 08:12 | Outpatient (CLI) | payer MEDICARE, OTHER ==
[2023-06-04 18:07] LABS: DEAMIDATED GLIADIN IGA 6 units (0-19); DEAMIDATED GLIADIN IGG 3 units (0-19); ENDOMYSIAL IGA Negative (Negative); IMMUNOGLOBULIN A 194 mg/dL (64-422); T-TRANSGLUTAMINASE (TTG) IGA <2 U/mL (0-3); T-TRANSGLUTAMINASE (TTG) IGG <2 U/mL (0-5)
== END 2023-06-03 08:13 | disposition home or self-care (01) ==
LOC: LAB.S 08:12
DX: R14.0 Abdominal distension (gaseous) (principal); R10.13 Epigastric pain
CPT/HCPCS: 36415; 82784; 86231; 86364

== ENCOUNTER 2023-11-06 12:12 | Outpatient (CLI) | payer MEDICARE, OTHER | END 2023-11-06 12:13 | disposition home or self-care (01) | LOC: DI 12:12 | PROVIDERS: ATTEND Internal Medicine | DX: R01.1 Cardiac murmur, unspecified (principal) | CPT/HCPCS: 93307 ==